=== PATIENT | male | born 1995 | race Two or more races ===

== ENCOUNTER 2019-01-08 17:15 | Emergency (ER) | payer SELFPAY ==
[~2019-01-08] VITALS: Ht 185.4 cm; Wt 83.9 kg
[2019-01-08 17:30] VITALS: BP 142/92
== END 2019-01-09 04:31 | disposition home or self-care (01) ==
LOC: EDBD 17:15 → ER 17:20
DX: S39.012A Strain of muscle, fascia and tendon of lower back, initial encounter (principal); F41.9 Anxiety disorder, unspecified; E11.9 Type 2 diabetes mellitus without complications; F15.10 Other stimulant abuse, uncomplicated; X58.XXXA Exposure to other specified factors, initial encounter; Y93.89 Activity, other specified; Y99.8 Other external cause status; Y92.89 Other specified places as the place of occurrence of the external cause
CPT/HCPCS: 93005